=== PATIENT | male | born 1965 | race Caucasian/White ===

== ENCOUNTER 2021-10-10 11:02 | Emergency (ER) | payer OTHER ==
[~2021-10-10 11:02] MED LIST: ASPIRIN EC81 MG PO; BP MED PO; LITHIUM300 MG PO; METFORMIN HCL500 MG PO; NAPROXEN500 MG PO; PRINIVIL10 MG PO; VICTOZA 2-0.6 MG/0.1 SC; ZOCOR5 MG PO
[2021-10-10 11:39] LABS: BASOPHIL 0.6 % (0-2); EOSINOPHIL 2.4 % (0-5); HCT 38.5 % (42.0-52.0); HGB 13.6 g/dl (13.2-18.0); LYMPHOCYTE 22.6 % (15-48); MCH 31.9 pg (25.0-31.0); MCHC 35.3 g/dL (32.0-36.0); MCV 90.4 fL (78.0-100.0); MPV 10.6 fL (6.0-9.5); NRBC 0; PLT 201 K/uL (150-400); RBC 4.26 M/uL (4.70-6.00); RDW 12.2 % (11.5-14.0); WBC 5.4 K/uL (4.0-10.5)
[2021-10-10 11:59] LABS: BILIRUBIN NEGATIVE (NEGATIVE); BLOOD NEGATIVE Ery/uL (NEGATIVE); CLARITY CLEAR (CLEAR); COLOR YELLOW (YELLOW); GLUCOSE (U) 3+ mg/dL (NORMAL); LEUKOCYTES NEGATIVE Leu/uL (NEGATIVE); NITRITE NEGATIVE (NEGATIVE); PROTEIN NEGATIVE (NEGATIVE); UROBILINOGEN 0.2 mg/dL (0.2-1.0)
[2021-10-10 11:59] LABS: ALBUMIN 3.9 g/dL (3.4-5.0); BILIRUBIN - TOTAL 1.1 mg/dL (0.2-1.0); BUN/CREAT RATIO (CALC) 15.2 RATIO; CREATININE 0.92 mg/dL (0.67-1.17); GLOBULIN (CALCULATION) 2.9 g/dL; POTASSIUM 4.2 mmol/L (3.5-5.1); TOTAL PROTEIN 6.8 g/dL (6.4-8.2)
[2021-10-10 12:22] LABS: INR 1.07 (0.9-1.2); PROTHROMBIN TIME 13.3 SECONDS (11.8-13.4); PTT 27.7 SECONDS (24.4-34.7)
[2021-10-10] MEDS ORDERED: PROTONIX 40MG T40 MG PO ×2 (14:17→14:22)
== END 2021-10-10 15:32 | disposition home or self-care (01) ==
LOC: FER 11:02
PROVIDERS: Emergency Medicine
DX: R07.89 Other chest pain (principal); K21.9 Gastro-esophageal reflux disease without esophagitis; I10 Essential (primary) hypertension; E11.9 Type 2 diabetes mellitus without complications; Z79.84 Long term (current) use of oral hypoglycemic drugs; Z79.82 Long term (current) use of aspirin; Z79.899 Other long term (current) drug therapy
CPT/HCPCS: 36415; 71045; 80053; 81003; 82553; 83690; 84484; 85025; 85610; 85730; 93005